=== PATIENT | male | born 1990 | race Caucasian/White ===

== ENCOUNTER 2018-04-19 14:34 | Outpatient (CLI) | payer OTHER | END 2018-04-19 14:35 | disposition home or self-care (01) | LOC: SC 14:34 | PROVIDERS: ATTEND Nurse Practitioner Family | DX: G47.30 Sleep apnea, unspecified (principal); G47.10 Hypersomnia, unspecified; R06.83 Snoring; G47.8 Other sleep disorders | CPT/HCPCS: 99203; 99212 ==

== ENCOUNTER 2018-06-06 20:19 | Outpatient (CLI) | payer OTHER | END 2018-06-06 20:20 | disposition home or self-care (01) | LOC: SC 20:19 | PROVIDERS: ATTEND Internal Medicine Pulmonary Disease | DX: R06.83 Snoring (principal); G47.61 Periodic limb movement disorder | CPT/HCPCS: 95810 ==

== ENCOUNTER 2018-07-06 09:07 | Outpatient (CLI) | payer OTHER | END 2018-07-06 09:08 | disposition home or self-care (01) | LOC: SC 09:07 | PROVIDERS: ATTEND Nurse Practitioner Family | DX: R06.83 Snoring (principal); G47.61 Periodic limb movement disorder | CPT/HCPCS: 99212; 99215 ==

== ENCOUNTER 2018-09-28 15:19 | Outpatient (CLI) | payer OTHER | END 2018-09-28 15:20 | disposition home or self-care (01) | LOC: SC 15:19 | PROVIDERS: ATTEND Nurse Practitioner Family | DX: R06.83 Snoring (principal) | CPT/HCPCS: 99212; 99213 ==

== ENCOUNTER 2019-09-05 21:35 | Emergency (ER) | payer OTHER ==
--- NOTE | 2019-09-05 21:59 | ED Physician Documentation ---
History of Present Illness - Stated complaint Stated Complaint: FEVER/CONGESTION - Chief complaint Chief Complaint: General - History obtained from History obtained from: Patient - History of Present Illness Timing: Other (29-year-old gentleman, otherwise healthy, active duty in the [employer], and AT. He became sick about 48 hours ago with rhinorrhea, shaking chills, myalgias, nonproductive cough. No recent travel.) Review of Systems Ten Systems: 10 systems reviewed and negative Constitutional: reports: Fever, Chills, Myalgias, Fatigue Ears: denies: Ear pain Nose: reports: Rhinorrhea / runny nose Throat: denies: Sore throat PD PAST MEDICAL HISTORY - Present Medications Home Medications: Ambulatory Orders Medication Instructions Recorded Confirmed No Known Home Medications 10/02/15 10/02/15 - Allergies Allergies/Adverse Reactions: Allergies Allergy/AdvReac Type Severity Reaction Status Date / Time No Known Drug Allergies Allergy Verified 09/05/19 21:39 PD ED PE NORMAL - Vitals Vital signs reviewed: Yes - General General: Alert and oriented X 3, No acute distress - HEENT HEENT: PERRL, EOMI, Ears normal, Pharynx benign - Neck Neck: Supple, no meningeal sign, No bony TTP - Cardiac Cardiac: RRR, No murmur - Respiratory Respiratory: No respiratory distress, Clear bilaterally - Abdomen Abdomen: Non tender - Back Back: No CVA TTP, No spinal TTP - Derm Derm: Normal color, Warm and dry - Neuro Neuro: Alert and oriented X 3, Normal speech - Psych Psych: Normal mood, Normal affect Results - Vitals Vitals: Vital Signs - 24 hr 09/05/19 21:39 Temperature 37.5 C Heart Rate 100 Respiratory 14 Rate Blood Pressure 146/76 H O2 Saturation 96 Oxygen O2 Source Room air PD MEDICAL DECISION MAKING - ED course ED course: 29-year-old gentleman with clinical influenza, I did not recommend antiviral medications as he is close to 48 hours of illness and is otherwise young healthy. He was given signs and symptoms to watch out and return for but mostly needs a work note. Departure - Departure Disposition: 01 Home, Self Care Clinical Impression: Flu-like symptoms Condition: Good Record reviewed to determine appropriate education?: Yes Instructions: ED Flu Comments: Discussed I agree your symptoms sound like the flu. Given your young healthy status I do not recommend antiviral medications. But you do need a few days off work. Push fluids. Return if worse. Forms: Activity restrictions
[2019-09-05 22:07] VITALS: BP 146/76
== END 2019-09-05 22:06 | disposition home or self-care (01) ==
LOC: ED 21:35
DX: J11.1 Influenza due to unidentified influenza virus with other respiratory manifestations (principal)
CPT/HCPCS: 99282

== ENCOUNTER 2020-04-29 12:42 | Emergency (ER) | payer OTHER ==
--- NOTE | 2020-04-29 13:22 | ED Physician Documentation ---
History of Present Illness - Stated complaint Stated Complaint: R FOOT PX - Chief complaint Chief Complaint: Ext Problem - History obtained from History obtained from: Patient - History of Present Illness Timing: Yesterday Pain level max: 6 Pain level now: 5 - Additonal information Additional information: 30-year-old male states that he was using a shovel yesterday, when his foot began to hurt. He states that it hurts mildly yesterday, worsened overnight and noticed bruising on the foot today. Came in for evaluation. Worse with walking, better with rest. Has not taken anything for pain Review of Systems Musculoskeletal: denies: Neck pain, Back pain Neurologic: denies: Focal weakness, Numbness, Headache PD PAST MEDICAL HISTORY - Past Medical History Past Medical History: No - Past Surgical History Past Surgical History: Yes HEENT: Tonsil/Adenoidectomy - Present Medications Home Medications: Ambulatory Orders Medication Instructions Recorded Confirmed No Known Home Medications 10/02/15 10/02/15 - Allergies Allergies/Adverse Reactions: Allergies Allergy/AdvReac Type Severity Reaction Status Date / Time No Known Drug Allergies Allergy Verified 04/29/20 12:55 - Social History Does the pt smoke?: No Smoking Status: Never smoker Does the pt drink ETOH?: Yes Does the pt have substance abuse?: No - Immunizations Immunizations are current?: Yes PD ED PE NORMAL - Vitals Vital signs reviewed: Yes - General General: Alert and oriented X 3, No acute distress - HEENT HEENT: Moist mucous membranes - Extremities Extremities: Other (Right foot - Tenderness and ecchymosis over the base of the fifth metatarsal. Otherwise normal examination of the foot and ankle. Neurovascular intact) - Neuro Neuro: Alert and oriented X 3 - Psych Psych: Normal mood, Normal affect Results - Vitals Vitals: Vital Signs - 24 hr 04/29/20 04/29/20 12:48 14:15 Temperature 37 C 36.8 C Heart Rate 89 87 Respiratory 18 16 Rate Blood Pressure 149/87 H 128/89 H O2 Saturation 97 100 Oxygen O2 Source Room air - Rads (name of study) Right foot x-ray Radiology: Prelim report reviewed, EMP read contemporaneously, See rad report (No acute abnormality) PD MEDICAL DECISION MAKING - ED course Complexity details: considered differential, d/w patient ED course: Patient with a right foot sprain/contusion. No acute findings on x-ray. Patient declines crutches or splinting. Patient counseled regarding signs and symptoms for which I believe and urgent re-evaluation would be necessary. Patient with good understanding of and agreement to plan and is comfortable going home at this time This document was made in part using voice recognition software. While efforts are made to proofread this document, sound alike and grammatical errors may occur. Departure - Departure Disposition: 01 Home, Self Care Clinical Impression: Right foot sprain Qualifiers: Encounter type: initial encounter Qualified Code(s): S93.601A - Unspecified sprain of right foot, initial encounter Condition: Good Instructions: ED Sprain Foot Follow-Up: your,doctor in 1 week [Other] Comments: Your x-ray does not show any acute abnormalities today. Please follow-up with your doctor in 1 week for repeat evaluation. He may bear weight as tolerated. You can use Motrin and/or Tylenol as needed for pain. Discharge Date/Time: 04/29/20 14:15
--- NOTE | 2020-04-29 13:38 | XRAY Report ---
PROCEDURE: Foot 3 View RT INDICATIONS: R foot pain s/p stomping on shovel TECHNIQUE: 3 views of the foot were acquired. COMPARISON: None FINDINGS: Bones: No fractures or dislocations. No suspicious bony lesions. Soft tissues: No tibiotalar joint effusion. Achilles tendon appears normal. IMPRESSION: No trauma found. Reviewed by: Panchito Morrow MD on 04/29/2020 1:37 PM PDT Approved by: Panchito Morrow MD on 04/29/2020 1:37 PM PDT Station ID: [id number]
[2020-04-29 14:16] VITALS: BP 128/89
== END 2020-04-29 14:15 | disposition home or self-care (01) ==
LOC: ED 12:42
DX: S93.601A Unspecified sprain of right foot, initial encounter (principal); S90.31XA Contusion of right foot, initial encounter; W22.8XXA Striking against or struck by other objects, initial encounter; Y93.H1 Activity, digging, shoveling and raking; Y92.007 Garden or yard of unspecified non-institutional (private) residence as the place of occurrence of the external cause
CPT/HCPCS: 99282; 99283

== ENCOUNTER 2022-09-19 08:00 | Outpatient (CLI) | payer OTHER ==
[2022-09-19 18:34] LABS: BASOPHILS # (AUTO) 0.1 10^3/uL (0.0-0.1); BASOPHILS % (AUTO) 1.2 %; EOSINOPHILS # (AUTO) 0.5 10^3/uL (0.0-0.7); EOSINOPHILS % (AUTO) 8.8 %; HCT - HEMATOCRIT 47.8 % (42.0-52.0); HGB - HEMOGLOBIN 16.2 g/dL (14.0-18.0); LYMPHOCYTES # (AUTO) 2.2 10^3/uL (1.5-3.5); LYMPHOCYTES % (AUTO) 37.6 %; MEAN CORPUSCULAR HEMOGLOBIN 29.5 pg (27.0-31.0); MEAN CORPUSCULAR HGB CONC 33.9 g/dL (32.0-36.0); MEAN CORPUSCULAR VOLUME 87.1 fL (80.0-94.0); MEAN PLATELET VOLUME 9.3 fL (7.4-11.4); MONOCYTES # (AUTO) 0.3 10^3/uL (0.0-1.0); MONOCYTES % (AUTO) 5.3 %; NEUTROPHILS # (AUTO) 2.7 10^3/uL (1.5-6.6); NEUTROPHILS % (AUTO) 46.9 %; PLT - PLATELET COUNT 303 10^3/uL (130-450); RED BLOOD COUNT 5.49 10^6/uL (4.70-6.10); RED CELL DISTRIBUTION WIDTH 12.5 % (12.0-15.0); WHITE BLOOD COUNT 5.8 x10^3/uL (4.8-10.8)
[2022-09-19 18:52] LABS: BILIRUBIN,URINE NEGATIVE (NEGATIVE); GLUCOSE, URINE (UA) NEGATIVE (NEGATIVE); KETONES,URINE (UA) NEGATIVE (NEGATIVE); LEUKOCYTE ESTERASE, URINE NEGATIVE (NEGATIVE); NITRITE,URINE NEGATIVE (NEGATIVE); OCCULT BLOOD,URINE NEGATIVE (NEGATIVE); PROTEIN,URINE NEGATIVE (NEGATIVE); UROBILINOGEN,URINE 0.2 (NORMAL) E.U./dL (NORMAL)
[2022-09-19 18:53] LABS: ALBUMIN 4.5 g/dL (3.2-5.5); ALBUMIN/GLOBULIN RATIO 1.6 (1.0-2.2); CALCIUM 9.5 mg/dL (8.5-10.3); CREATININE 1.1 mg/dL (0.6-1.2); POTASSIUM 3.7 mmol/L (3.5-5.0); TOTAL PROTEIN 7.3 g/dL (6.7-8.2)
[2022-09-19 18:55] LABS: CLARITY,URINE CLEAR (CLEAR)
[2022-09-19 19:33] LABS: BACTERIA,URINE None Seen /HPF (None Seen); RBC,URINE None Seen /HPF (0-5); SQUAMOUS EPITHELIAL CELL,UR NONE SEEN (<= Few); WBC,URINE 0-3 /HPF (0-3)
== END 2022-09-19 23:59 | disposition home or self-care (01) ==
LOC: LAB.N 08:00
PROVIDERS: ATTEND Nurse Practitioner
DX: R10.9 Unspecified abdominal pain (principal)
CPT/HCPCS: 36415; 80053; 81001; 81003; 82150; 83690; 85025; 87086